=== PATIENT | male | born 1950 | race Caucasian/White ===

== ENCOUNTER 2017-04-22 11:00 | Inpatient (IN) | payer OTHER ==
[2017-04-27] MEDS ORDERED: METHOCARBAMOL 750 MG TAB PO PRN (17:42)
[2017-04-27] MEDS ORDERED: HYDROCODONE/APAP 10/325 TAB PO PRN (17:42)
[2017-04-27] MEDS ORDERED: HYDROCODONE/APAP 5/325 TAB PO PRN (17:42)
[2017-04-27] MEDS ORDERED: FLUTICASONE NASAL 120 SPRAYS/16 GM MDI EACHNARE PRN (17:42)
[2017-04-27] MEDS ORDERED: POLYETHYLENE GLYCOL 3350 17 GM PKT PO PRN (18:09)
[2017-04-27] MEDS ORDERED: BISACODYL 10 MG SUPP PR PRN (18:09)
[2017-04-27] MEDS: traMADol 50 MG TAB PO SCH (18:30)
[2017-04-27] MEDS: HYDROCODONE/APAP 5/325 TAB PO PRN (19:40)
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
[2017-04-27] MEDS: PREGABALIN 75 MG CAP PO SCH (21:26)
[2017-04-27] MEDS: SENNOSIDES 1 TAB PO SCH (21:26)
[2017-04-28] MEDS: traMADol 50 MG TAB PO SCH ×5 (00:17→23:38)
[2017-04-28] MEDS: HYDROCODONE/APAP 5/325 TAB PO PRN ×4 (02:18→20:14)
[2017-04-28] MEDS: CITALOPRAM 20 MG TAB PO SCH (08:06)
[2017-04-28] MEDS: ENOXAPARIN 40 MG/0.4 ML SYR SC SCH (08:07)
[2017-04-28] MEDS: SENNOSIDES 1 TAB PO SCH ×2 (08:08→20:15)
[2017-04-28] MEDS: PREGABALIN 75 MG CAP PO SCH ×3 (08:08→20:14)
[2017-04-28 08:11] LABS: % IMMATURE GRANULYOCYTES 0.4 % (0.0-1.1); ABSOLUTE IMMATURE GRANULOCYTES 0.03 10^3/uL (0.00-0.10); ADD DIFF? NO; ADD MORPH? NO; ADD SCAN? NO; ATYPICAL LYMPHOCYTE FLAG 0 (0-99); FRAGMENT RBC FLAG 0 (0-99); HEMATOCRIT 33.2 % (40.0-51.0); HEMOGLOBIN 11.1 g/dL (13.7-17.5); LEFT SHIFT FLG 0 (0-99); LIPEMIA HEMOLYSIS FLAG 80 (0-99); MEAN CELL HEMOGLOBIN CONCENTR. 33.4 g/dL (32.4-36.7); MEAN CELL VOLUME 92.7 fL (81.5-99.8); MEAN PLATELET VOLUME 9.5 fL (8.7-11.7); PLATELET CLUMPS FLAG 0 (0-99); PLATELET COUNT 245 10^3/uL (150-400); RED BLOOD CELL COUNT 3.58 10^6/uL (4.40-6.38); RED CELL DISTRIBUTION WIDTH 12.7 % (11.5-15.2)
[2017-04-28 08:23] LABS: ANION GAP 7 mEq/L (8-16); CALCIUM 8.1 mg/dL (8.5-10.4); CARBON DIOXIDE 30 mEq/l (22-31); CHLORIDE 99 mEq/L (97-110); CREATININE 0.6 mg/dL (0.7-1.3); GLOMERULAR FILTRATION RATE > 60; GLUCOSE 69 mg/dL (70-100); POTASSIUM 3.6 mEq/L (3.5-5.2); SODIUM 136 mEq/L (134-144)
[2017-04-28] MEDS ORDERED: PANTOPRAZOLE SODIUM 40 MG TAB PO PRN (09:00)
--- NOTE | 2017-04-28 11:41 | PDOREHIP ---
Admission [facility] - Admission - 3 Day Assessment Period Admission Date/Day 1: 04/27/17 Day 2: 04/28/17 Day 3: 04/29/17 - Active Diagnoses Comorbidities and Co-existing Conditions at Admission: 87909. None of the Above - Skin Conditions Unhealed Pressure Ulcer (1 or more/Stage 1 or >)-Admission: 0. No
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
[2017-04-29] MEDS: traMADol 50 MG TAB PO SCH ×3 (05:22→17:04)
[2017-04-29] MEDS: PREGABALIN 75 MG CAP PO SCH ×3 (08:06→21:17)
[2017-04-29] MEDS: CITALOPRAM 20 MG TAB PO SCH (08:06)
[2017-04-29] MEDS: HYDROCODONE/APAP 5/325 TAB PO PRN ×2 (08:06→21:16)
[2017-04-29] MEDS: SENNOSIDES 1 TAB PO SCH ×2 (08:07→21:17)
[2017-04-29] MEDS: ENOXAPARIN 40 MG/0.4 ML SYR SC SCH (08:07)
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
[2017-04-29 11:43] LABS: % IMMATURE GRANULYOCYTES 0.7 % (0.0-1.1); ABSOLUTE IMMATURE GRANULOCYTES 0.06 10^3/uL (0.00-0.10); ADD DIFF? NO; ADD MORPH? NO; ADD SCAN? NO; ATYPICAL LYMPHOCYTE FLAG 20 (0-99); FRAGMENT RBC FLAG 0 (0-99); HEMATOCRIT 34.6 % (40.0-51.0); HEMOGLOBIN 11.6 g/dL (13.7-17.5); LEFT SHIFT FLG 0 (0-99); LIPEMIA HEMOLYSIS FLAG 80 (0-99); MEAN CELL HEMOGLOBIN 30.9 pg (27.9-34.1); MEAN CELL HEMOGLOBIN CONCENTR. 33.5 g/dL (32.4-36.7); MEAN PLATELET VOLUME 9.5 fL (8.7-11.7); PLATELET CLUMPS FLAG 0 (0-99); PLATELET COUNT 256 10^3/uL (150-400); RED BLOOD CELL COUNT 3.76 10^6/uL (4.40-6.38); RED CELL DISTRIBUTION WIDTH 12.7 % (11.5-15.2)
[2017-04-29] MEDS: NYSTATIN SUSP 500000 UNIT/5 ML UDCUP PO SCH ×3 (13:10→21:16)
[2017-04-29 13:59] LABS: COLOR YELLOW; LEUKOCYTE ESTERASE,URINE 2+ (NEGATIVE); NITRITE,URINE NEGATIVE (NEGATIVE)
[2017-04-29 14:06] LABS: BACTERIA TRACE /hpf (NONE SEEN); WBC,URINE 50-182 /hpf (0-3)
[2017-04-29] MEDS: ACETAMINOPHEN 325 MG TAB PO PRN (15:25)
[2017-04-29] MEDS: CEPHALEXIN 500 MG CAP PO SCH (17:04)
[2017-04-30] MEDS: traMADol 50 MG TAB PO SCH ×4 (00:43→18:05)
[2017-04-30] MEDS: CEPHALEXIN 500 MG CAP PO SCH ×4 (00:43→18:05)
[2017-04-30] MEDS: NYSTATIN SUSP 500000 UNIT/5 ML UDCUP PO SCH ×4 (06:05→20:50)
[2017-04-30] MEDS: ENOXAPARIN 40 MG/0.4 ML SYR SC SCH (09:08)
[2017-04-30] MEDS: PREGABALIN 75 MG CAP PO SCH ×3 (09:08→20:50)
[2017-04-30] MEDS: CITALOPRAM 20 MG TAB PO SCH (09:09)
[2017-04-30] MEDS: SENNOSIDES 1 TAB PO SCH ×2 (09:09→20:50)
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
[2017-04-30] MEDS: HYDROCODONE/APAP 5/325 TAB PO PRN (16:33)
[2017-05-01] MEDS: CEPHALEXIN 500 MG CAP PO SCH ×2 (01:03→05:14)
[2017-05-01] MEDS: traMADol 50 MG TAB PO SCH ×4 (01:03→18:12)
[2017-05-01] MEDS: NYSTATIN SUSP 500000 UNIT/5 ML UDCUP PO SCH ×4 (05:14→20:10)
[2017-05-01] MEDS: HYDROCODONE/APAP 5/325 TAB PO PRN ×3 (08:19→19:26)
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
[2017-05-01] MEDS: ENOXAPARIN 40 MG/0.4 ML SYR SC SCH (10:03)
[2017-05-01] MEDS: CITALOPRAM 20 MG TAB PO SCH (10:03)
[2017-05-01] MEDS: PREGABALIN 75 MG CAP PO SCH ×3 (10:04→20:10)
[2017-05-01] MEDS: SENNOSIDES 1 TAB PO SCH ×2 (10:05→20:10)
[2017-05-01] MEDS: AMOXICILLIN/CLAVULANATE POT 875/125 MG TAB PO SCH ×2 (12:03→20:10)
[2017-05-02] MEDS: traMADol 50 MG TAB PO SCH ×5 (00:43→23:30)
[2017-05-02] MEDS: NYSTATIN SUSP 500000 UNIT/5 ML UDCUP PO SCH ×4 (05:07→20:33)
[2017-05-02] MEDS: SENNOSIDES 1 TAB PO SCH ×2 (08:57→20:32)
[2017-05-02] MEDS: AMOXICILLIN/CLAVULANATE POT 875/125 MG TAB PO SCH ×2 (08:58→20:32)
[2017-05-02] MEDS: CITALOPRAM 20 MG TAB PO SCH (08:58)
[2017-05-02] MEDS: ENOXAPARIN 40 MG/0.4 ML SYR SC SCH (08:58)
[2017-05-02] MEDS: PREGABALIN 75 MG CAP PO SCH ×3 (08:59→20:33)
[2017-05-02] MEDS: HYDROCODONE/APAP 5/325 TAB PO PRN ×2 (09:34→20:31)
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
[2017-05-03] MEDS: traMADol 50 MG TAB PO SCH ×4 (05:50→23:32)
[2017-05-03] MEDS: NYSTATIN SUSP 500000 UNIT/5 ML UDCUP PO SCH ×4 (05:50→21:59)
[2017-05-03] MEDS: ENOXAPARIN 40 MG/0.4 ML SYR SC SCH (09:05)
[2017-05-03] MEDS: CITALOPRAM 20 MG TAB PO SCH (09:05)
[2017-05-03] MEDS: PREGABALIN 75 MG CAP PO SCH ×3 (09:06→21:51)
[2017-05-03] MEDS: SENNOSIDES 1 TAB PO SCH ×2 (09:06→21:52)
[2017-05-03] MEDS: AMOXICILLIN/CLAVULANATE POT 875/125 MG TAB PO SCH ×2 (09:06→21:52)
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
[2017-05-03] MEDS: HYDROCODONE/APAP 5/325 TAB PO PRN (23:32)
[2017-05-04] MEDS: NYSTATIN SUSP 500000 UNIT/5 ML UDCUP PO SCH ×4 (06:43→20:44)
[2017-05-04] MEDS: traMADol 50 MG TAB PO SCH ×3 (06:43→17:17)
[2017-05-04] MEDS: AMOXICILLIN/CLAVULANATE POT 875/125 MG TAB PO SCH ×2 (08:46→20:44)
[2017-05-04] MEDS: PREGABALIN 75 MG CAP PO SCH ×3 (08:46→20:44)
[2017-05-04] MEDS: SENNOSIDES 1 TAB PO SCH ×2 (08:47→20:44)
[2017-05-04] MEDS: ENOXAPARIN 40 MG/0.4 ML SYR SC SCH (08:47)
[2017-05-04] MEDS: CITALOPRAM 20 MG TAB PO SCH (08:47)
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
[2017-05-05] MEDS: traMADol 50 MG TAB PO SCH ×5 (00:39→23:33)
[2017-05-05] MEDS: NYSTATIN SUSP 500000 UNIT/5 ML UDCUP PO SCH (05:44)
[2017-05-05] MEDS: ENOXAPARIN 40 MG/0.4 ML SYR SC SCH (08:03)
[2017-05-05] MEDS: PREGABALIN 75 MG CAP PO SCH ×3 (08:03→21:31)
[2017-05-05] MEDS: AMOXICILLIN/CLAVULANATE POT 875/125 MG TAB PO SCH ×2 (08:03→21:31)
[2017-05-05] MEDS: CITALOPRAM 20 MG TAB PO SCH (08:03)
[2017-05-05] MEDS: SENNOSIDES 1 TAB PO SCH ×2 (08:03→21:31)
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
[2017-05-05] MEDS: DIAZEPAM 5 MG TAB PO PRN (19:36)
[2017-05-05] MEDS: HYDROCODONE/APAP 5/325 TAB PO PRN (19:42)
[2017-05-06] MEDS: traMADol 50 MG TAB PO SCH ×3 (05:24→18:00)
[2017-05-06] MEDS: ENOXAPARIN 40 MG/0.4 ML SYR SC SCH (08:18)
[2017-05-06] MEDS: HYDROCODONE/APAP 5/325 TAB PO PRN ×2 (08:18→15:49)
[2017-05-06] MEDS: CITALOPRAM 20 MG TAB PO SCH (08:19)
[2017-05-06] MEDS: AMOXICILLIN/CLAVULANATE POT 875/125 MG TAB PO SCH ×2 (08:19→20:25)
[2017-05-06] MEDS: SENNOSIDES 1 TAB PO SCH ×2 (08:19→20:25)
[2017-05-06] MEDS: PREGABALIN 75 MG CAP PO SCH ×3 (08:19→20:25)
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
[2017-05-06] MEDS: buPROPion SR 100 MG TAB PO SCH (14:40)
[2017-05-07] MEDS: traMADol 50 MG TAB PO SCH ×4 (05:15→17:49)
[2017-05-07] MEDS: SENNOSIDES 1 TAB PO SCH ×2 (08:22→21:40)
[2017-05-07] MEDS: PREGABALIN 75 MG CAP PO SCH ×3 (08:22→21:40)
[2017-05-07] MEDS: buPROPion SR 100 MG TAB PO SCH ×2 (08:22→16:47)
[2017-05-07] MEDS: CITALOPRAM 20 MG TAB PO SCH (08:22)
[2017-05-07] MEDS: AMOXICILLIN/CLAVULANATE POT 875/125 MG TAB PO SCH (08:22)
[2017-05-07] MEDS: HYDROCODONE/APAP 5/325 TAB PO PRN (10:44)
[2017-05-07] MEDS ORDERED: HYDROCODONE/APAP 5/325 TAB PO ONE ×2 (11:17→13:15)
[2017-05-07] MEDS: DIAZEPAM 5 MG TAB PO PRN (21:43)
[2017-05-08] MEDS: traMADol 50 MG TAB PO SCH ×5 (00:05→23:08)
[2017-05-08] MEDS: ACETAMINOPHEN 325 MG TAB PO PRN (08:21)
[2017-05-08] MEDS: buPROPion SR 100 MG TAB PO SCH ×2 (08:22→16:00)
[2017-05-08] MEDS: CITALOPRAM 20 MG TAB PO SCH (08:23)
[2017-05-08] MEDS: SENNOSIDES 1 TAB PO SCH ×2 (08:24→20:47)
[2017-05-08] MEDS: PREGABALIN 75 MG CAP PO SCH ×3 (08:24→20:47)
[2017-05-08] MEDS: HYDROCODONE/APAP 5/325 TAB PO PRN (12:53)
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
[2017-05-09] MEDS: traMADol 50 MG TAB PO SCH ×4 (05:13→22:09)
[2017-05-09] MEDS: CITALOPRAM 20 MG TAB PO SCH (08:14)
[2017-05-09] MEDS: PREGABALIN 75 MG CAP PO SCH ×3 (08:14→22:09)
[2017-05-09] MEDS: buPROPion SR 100 MG TAB PO SCH ×2 (08:15→14:33)
[2017-05-09] MEDS: SENNOSIDES 1 TAB PO SCH ×2 (08:16→22:08)
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
[2017-05-10] MEDS: traMADol 50 MG TAB PO SCH ×3 (05:06→18:15)
[2017-05-10] MEDS: SENNOSIDES 1 TAB PO SCH ×2 (08:58→20:01)
[2017-05-10] MEDS: CITALOPRAM 20 MG TAB PO SCH (08:59)
[2017-05-10] MEDS: PREGABALIN 75 MG CAP PO SCH ×3 (08:59→20:01)
[2017-05-10] MEDS: buPROPion SR 100 MG TAB PO SCH ×2 (09:00→14:29)
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
[2017-05-10] MEDS: HYDROCODONE/APAP 5/325 TAB PO PRN (14:30)
[2017-05-10] MEDS ORDERED: DOXAZOSIN MESYLATE 1 MG TAB PO SCH (21:00)
[2017-05-11] MEDS: traMADol 50 MG TAB PO SCH ×5 (00:10→22:32)
[2017-05-11] MEDS: buPROPion SR 100 MG TAB PO SCH ×2 (08:13→13:27)
[2017-05-11] MEDS: CITALOPRAM 20 MG TAB PO SCH (08:14)
[2017-05-11] MEDS: SENNOSIDES 1 TAB PO SCH ×2 (08:15→22:33)
[2017-05-11] MEDS: PREGABALIN 75 MG CAP PO SCH ×3 (08:15→22:33)
[2017-05-11 08:20] VITALS: RESP 16
[2017-05-11] MEDS: HYDROCODONE/APAP 5/325 TAB PO PRN (09:28)
[2017-05-11] MEDS: TAMSULOSIN HCL 0.4 MG CAP PO SCH (13:30)
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
--- NOTE | 2017-05-11 15:21 | PDOREHIP ---
Admission [facility] - Admission - 3 Day Assessment Period Admission Date/Day 1: 04/27/17 Day 2: 04/28/17 Day 3: 04/29/17 Discharge [facility] - Discharge - 3 Day Assessment Period 2 Days Prior to Anticipated Discharge Date: 05/10/17 1 Day Prior to Anticipated Discharge Date: 05/11/17 Anticipated Discharge Date: 05/12/17 - Discharge Skin Conditions Unhealed Pressure Ulcer (1 or more/Stage 1 or >)-Discharge: 0. No
[2017-05-12 05:09] VITALS: BP 114/73; PULSE 80; TEMP 98.2; O2SAT 92
[2017-05-12] MEDS: traMADol 50 MG TAB PO SCH ×2 (05:13→12:09)
[2017-05-12] MEDS: CITALOPRAM 20 MG TAB PO SCH (08:14)
[2017-05-12] MEDS: buPROPion SR 100 MG TAB PO SCH ×2 (08:14→14:04)
[2017-05-12] MEDS: TAMSULOSIN HCL 0.4 MG CAP PO SCH (08:14)
[2017-05-12] MEDS: SENNOSIDES 1 TAB PO SCH (08:15)
[2017-05-12] MEDS: PREGABALIN 75 MG CAP PO SCH (08:15)
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
== END 2017-05-12 14:16 | disposition home or self-care (01) | DRG 949 ==
LOC: BREH 04-27 17:14
PROVIDERS: ADMIT Internal Medicine; ATTEND Internal Medicine
PROC: F08Z1FZ Dressing Techniques Treatment using Assistive, Adaptive, Supportive or Protective Equipment (ICD-10-PCS; principal; 2017-04-27)
PROC: F08Z0FZ Bathing/Showering Techniques Treatment using Assistive, Adaptive, Supportive or Protective Equipment (ICD-10-PCS; principal; 2017-04-27)
PROC: F07Z5FZ Bed Mobility Treatment using Assistive, Adaptive, Supportive or Protective Equipment (ICD-10-PCS; principal; 2017-04-27)
PROC: F08Z2FZ Grooming/Personal Hygiene Treatment using Assistive, Adaptive, Supportive or Protective Equipment (ICD-10-PCS; principal; 2017-04-27)
PROC: F08Z3FZ Feeding/Eating Treatment using Assistive, Adaptive, Supportive or Protective Equipment (ICD-10-PCS; principal; 2017-04-27)
DX: Z48.811 Encounter for surgical aftercare following surgery on the nervous system (principal); G82.20 Paraplegia, unspecified; F05 Delirium due to known physiological condition; E70.29 Other disorders of tyrosine metabolism; G83 Other paralytic syndromes; G31.84 Mild cognitive impairment of uncertain or unknown etiology; K59.03 Drug induced constipation; T40.605A Adverse effect of unspecified narcotics, initial encounter; R09.02 Hypoxemia; F32.9 Major depressive disorder, single episode, unspecified; Z96.653 Presence of artificial knee joint, bilateral; Z88.5 Allergy status to narcotic agent
CPT/HCPCS: 92507-GN; 92522-GN; 97032-GO; 97032-GP; 97110-GO; 97110-GP; 97112-GO; 97112-GP; 97116-GP; 97140-GO; 97140-GP; 97162-GP; 97166-GO; 97530-GO; 97530-GP; 97535-GO; 99366-GO; J1650